=== PATIENT | male | born 1960 | race Caucasian/White ===

== ENCOUNTER 2021-01-16 12:28 | Emergency (ER) | payer BC ==
[~2021-01-16] VITALS: Ht 182.9 cm; Wt 151.9 kg
[2021-01-16] MEDS ORDERED: METHYLPREDNISOLO4 M1 PO (15:46)
[2021-01-16] MEDS ORDERED: CYCLOBENZAPRINE5 MG PO (15:46)
[2021-01-16] MEDS ORDERED: AMLODIPINE BESY10 MG PO (15:47)
[2021-01-16] MEDS ORDERED: BUMETANIDE2 MG PO (15:47)
[2021-01-16] MEDS ORDERED: SYMBICORT 16010.2 GM INH (15:47)
[2021-01-16] MEDS ORDERED: LISINOPRIL20 MG (15:47)
[2021-01-16] MEDS ORDERED: SPIRIVA18 MCG (15:47)
[2021-01-16] MEDS ORDERED: METFORMIN HCL1000 MG (15:47)
[2021-01-16] MEDS ORDERED: ATORVASTATIN CA40 MG PO (15:47)
[2021-01-16] MEDS ORDERED: METOPROLOL SUCC50 MG (15:47)
[2021-01-16] MEDS ORDERED: ALBUTEROL2.5 MG/3 M INH (15:48)
[2021-01-16] MEDS ORDERED: HYDROCODON-ACE1 EA11 PO (16:50)
[2021-01-16] MEDS ORDERED: LIDODERM1 EACH TOP (16:50)
== END 2021-01-16 17:14 | disposition home or self-care (01) ==
LOC: ED 12:28
DX: M54.42 Lumbago with sciatica, left side (principal); J44.9 Chronic obstructive pulmonary disease, unspecified; I10 Essential (primary) hypertension; E11.9 Type 2 diabetes mellitus without complications; G47.30 Sleep apnea, unspecified; F17.200 Nicotine dependence, unspecified, uncomplicated; Z88.6 Allergy status to analgesic agent; Z79.899 Other long term (current) drug therapy; Z79.84 Long term (current) use of oral hypoglycemic drugs
CPT/HCPCS: 99283